=== PATIENT | male | born 1950 | race Caucasian/White ===

== ENCOUNTER → 2016-08-01 | Outpatient (CLI) | payer OTHER ==
[2015-09-16 11:41] VITALS: BP 162/80
[~2016-08-01] MED LIST: ASPI325T11 PO; DILT240C2 PO; INSU100I27 SQ; MECL25TA PO; OMEP20CA9 PO; POTA20TA82 PO; TAMS0.4C97 PO
[2016-08-01 10:18] LABS: HEMATOCRIT 42.8 % (39.0-53.0); HEMOGLOBIN 14.8 g/dL (13.0-17.5)
[2016-08-01 10:22] LABS: BILIRUBIN,URINE NEG (NEG); CLARITY,URINE HAZY; COLOR,URINE YELLOW; GLUCOSE,URINE 100 mg/dL (NEG)
[2016-08-01 10:23] LABS: AMORPHOUS SEDIMENT,UR PRESENT /HPF; BACTERIA,URINE 0 /HPF (0-FEW); NITRITE,URINE NEG (NEG); SQUAMOUS EPITHELIAL CELL,UR OCC /LPF; UROBILINOGEN,URINE 0.2 mg/dL (0.2 mg/dL); WBC,URINE 0 /HPF (0-4)
[2016-08-01 10:43] LABS: ALBUMIN 3.1 g/dL (3.4-5.0); CALCIUM 8.7 mg/dL (8.5-10.1); CREATININE 1.5 mg/dL (0.7-1.3); GFR 46.7; MAGNESIUM 1.2 mg/dL (1.8-2.4); PHOSPHORUS 3.2 mg/dL (2.6-4.7); POTASSIUM 4.1 mmol/L (3.5-5.1)
[2016-08-01 22:07] LABS: TOTAL SERUM CREATININE 1.34 mg/dL (0.76-1.27); UR PROTEIN 219.9 mg/dL (Not Estab.)
[2016-08-03 02:11] LABS: CREATININE PTH 1.35 mg/dL (0.76-1.27); PTH INTACT 36 pg/mL (15-65)
== END | disposition home or self-care (01) ==
LOC: LAB 08:41
PROVIDERS: ATTEND Internal Medicine Nephrology
DX: I12.9 Hypertensive chronic kidney disease with stage 1 through stage 4 chronic kidney disease, or unspecified chronic kidney disease (principal); E11.22 Type 2 diabetes mellitus with diabetic chronic kidney disease; E11.65 Type 2 diabetes mellitus with hyperglycemia; N18.3 Chronic kidney disease, stage 3 (moderate); I70.1 Atherosclerosis of renal artery; E55.9 Vitamin D deficiency, unspecified; Z68.29 Body mass index [BMI] 29.0-29.9, adult
CPT/HCPCS: 36415; 80069; 81001; 82575; 83735; 83970; 84156; 85014; 85018

== ENCOUNTER 2019-06-07 19:25 | Observation (INO) | payer MEDICARE, OTHER ==
[~2019-06-07] VITALS: Ht 182.9 cm; Wt 99.5 kg
[~2019-06-07 19:25] MED LIST changes: +OMEP20CA16 PO; -OMEP20CA9 PO; +POTA20TA4 PO; -POTA20TA82 PO
[2019-06-07] MEDS ORDERED: IV RINGERS SOLUTION,LACTATED 1,000 ML IV SCH (19:27)
--- NOTE | 2019-06-07 19:27 | PHYS DOC ---
Past History Past Medical History: Anxiety, CAD, Diabetes, Hypertension, Renal Failure, Other Past Medical History Sepsis- Amputation Lt BKA- Cellulitis 2013?, PVDz Past Surgical History: Other Alcohol Use: None Drug Use: None General Adult HPI: HPI: ".. I ve been hurting in my Rt. flank... since yesterday.. it allen in my kidney area.. maybe.... it not my appendix because it is gone... it hurting more tonight.. 08/25... " I had dialysis back when I got septic...and renal failure.. and was intubated... I think I was at [facility]... ".." I was down there weeks.. It started with an infection in my Lt. foot... but it just kept getting worse..." Patient is a a68 year old MALE who presents with above hx and complaints of Rt. flank pain. Patient denies any intake of bad food. Patient denies any recent travel outside the [place] area. Patient denies any immunosuppression. Patient does have a history of known diabetes. Home glucoses was 136 today. Patient had a serious septic episode from infected left leg which eventually resulted in amputation and prolonged stay in the ICU at [facility]. Patient thinks this occurred approximately 6 years ago.. Patient reports a normal stool yesterday., But then developed a episode of diarrhea yesterday afternoon. Patient denies any history of kidney stones. There is a family history of cancer of the kidneys with his mother, stomach cancer and pancreatic cancer with his 2 brothers that are . The follows with Dr Charisma De Los Santos. Review of Systems: Review of Systems: Constitutional: Denies fever or chills Eyes: Denies change in visual acuity HENT: Denies nasal congestion or sore throat Respiratory: Denies cough or shortness of breath Cardiovascular: Denies chest pain or edema GI: Denies abdominal pain, nausea, vomiting, bloody stools or diarrhea : Denies dysuria Musculoskeletal: Denies back pain or joint pain Integument: Denies rash Neurologic: Denies headache, focal weakness or sensory changes Endocrine: Denies polyuria or polydipsia Lymphatic: Denies swollen glands Psychiatric: Denies depression or anxiety Heart Score: HEART Score for Chest Pain: HEART Score for Chest Pain Response (Comments) Value History Moderately Suspicious 1 ECG Nonspecific Repolarizatio 1 Age > 65 2 Risk Factors 1 or 2 Risk Factors 1 Troponin >1-<3x Normal Limit 1 Total 6 Risk Factors: Risk Factors: DM, Current or recent (<one month) smoker, HTN, HLP, family history of CAD, obesity. Risk Scores: Score 0 - 3: 2.5% MACE over next 6 weeks - Discharge Home Score 4 - 6: 20.3% MACE over next 6 weeks - Admit for Clinical Observation Score 7 - 10: 72.7% MACE over next 6 weeks - Early Invasive Strategies Family History: Family History: Several family members with cancer as per HPI Current Medications: Current Meds: See nursing for home meds Allergies: Allergies: Allergies Coded Allergies Type Severity Reaction Last Updated Verified No Known Drug Allergies 06/26/15 No Physical Exam: PE: Constitutional: Moderate acute distress, non-toxic appearance. [] HENT: Normocephalic, atraumatic, bilateral external ears normal, oropharynx moist, no oral exudates, nose normal. [] Eyes: PERRLA, EOMI, conjunctiva normal, no discharge. [] Neck: Normal range of motion, no tenderness, supple, no stridor. [] Cardiovascular : Bradycardia heart rate regular rhythm, no murmur [] Lungs & Thorax: Bilateral breath sounds equal at apex auscultation [. Patient] has scar upper chest area Abdomen: Bowel sounds normal, soft, right lower flank tenderness, no masses, no pulsatile masses. Distended. Old surgical scar Skin: Warm, dry, no erythema, no rash. [] Back: No tenderness, right CVA tenderness. [] Extremities: No tenderness, no cyanosis, no clubbing, ROM intact, no edema. [] Below the knee amputation left Neurologic: Alert and oriented X 3, normal motor function, decreased plantar sensory function, no focal deficits noted. [] Psychologic: Affect anxious, judgement normal, mood normal. [] EKG: EKG: My interpretation of EKG shows a sinus bradycardia at 51 bpm there is a prolonged IL interval consistent with first-degree block 272 ms, there is left axis deviation, there is left anterior fascicular block, but no findings of acute STEMI with contralateral changes. [] Radiology/Procedures: Radiology/Procedures: [address] [address] IMAGING REPORT Signed PATIENT: SARA ZELAYA ACCOUNT: [id number] : 1950 LOCATION: ER AGE: 68 SEX: M EXAM STATUS: REG ER ORD. PHYSICIAN: SASHA BARNES MD REASON: flank pain, LEFT SIDED PAIN. PROCEDURE: ACUTE ABDOMEN SERIES ACUTE ABDOMEN SERIES 06/07/2019 7:27 PM INDICATION: Right-sided flank pain COMPARISON: Abdominal radiograph 06/10/2006 TECHNIQUE: Supine view of the chest, upright view of the abdomen and supine view of abdomen are provided. FINDINGS/ IMPRESSION: 1. Borderline enlarged cardiomediastinal silhouette. No focal airspace consolidation. Mild bronchial wall thickening in the left lower lobe may represent bronchitis. No pleural effusions, pulmonary vascular congestion or pneumothorax. 2. There is no definite free intraperitoneal air, although sitting views obscure the right hemidiaphragm. There are no dilated loops of small or large bowel. Mild gaseous distention of the sigmoid colon measuring up to 5.8 cm which may represent ileus. Small bowel loops measure up to 2.7 cm the left midabdomen. Moderate amount of stool is noted throughout the colon. 3. Vascular calcifications are present. No suspicious osseous abnormality is identified. Electronically signed by: Rosalino Heredia MD (06/07/2019 8:34 PM) [facility] DICTATED AND SIGNED BY: ROSALINO HEREDIA MD DATE: 06/07/192033 CC: DARIANA DE LOS SANTOS MD; SASHA BARNES MD ~ ][address] [address] IMAGING REPORT Signed PATIENT: SARA ZELAYA ACCOUNT: [id number] : 1950 LOCATION: ER AGE: 68 SEX: M EXAM STATUS: REG ER ORD. PHYSICIAN: SASHA BARNES MD REASON: Rt. flank pain PROCEDURE: CT ABDOMEN PELVIS WO CONTRAST PQRS Compliance Statement: One or more of the following individualized dose reduction techniques were utilized for this examination: 1. Automated exposure control 2. Adjustment of the mA and/or kV according to patient size 3. Use of iterative reconstruction technique CT abdomen/pelvis without contrast 06/07/2019 8:39 PM INDICATION: Right flank pain COMPARISON: CT abdomen/pelvis 06/10/2006 TECHNIQUE: Multiple axial CT images of the abdomen and pelvis were obtained without intravenous contrast. Coronal and sagittal reformats are provided. FINDINGS: There is dependent atelectasis at the right lung base. Heart size is borderline enlarged. Three-vessel coronary artery vascular calcifications are present. Evaluation of solid abdominal viscera is limited by lack of intravenous contrast. Liver, spleen, bilateral adrenal glands and gallbladder are normal in appearance. There is moderate fatty atrophy of the pancreas. No suspicious pancreatic mass. Abdominal aorta is normal in course and caliber with dense calcified atheromatous plaque. No pathologically enlarged lymph nodes are identified in the abdomen and pelvis. There is no free fluid or free intraperitoneal air. Small fat-containing umbilical hernia measures 10 mm. Small and large bowel are normal in caliber. Appendix is not visualized. No pericecal inflammatory changes are identified. Stomach is underdistended, limiting evaluation. The kidneys are relatively symmetric in appearance. There is no suspicious renal mass within the limitations of a noncontrast examination. There is no hydronephrosis. There are no calculi within the kidneys, ureters or urinary bladder. Mild bladder wall thickening may be secondary to underdistention versus chronic outlet obstruction. Prostate is normal in appearance. No suspicious osseous abnormality is identified. IMPRESSION: No acute abnormality is identified in abdomen and pelvis. Specifically, no evidence for obstructive uropathy. Electronically signed by: Rosalino Heredia MD (06/07/2019 9:22 PM) [facility] DICTATED AND SIGNED BY: ROSALINO HEREDIA MD DATE: 06/07/192121 CC: DARIANA DE LOS SANTOS MD; SASHA BARNES MD ~ Course & Med Decision Making: Course & Med Decision Making Pertinent Labs and Imaging studies reviewed. (See chart for details) Pt. admitted to Dr. Zabala and Dr. Schreiber service. Will completed CT with contrast in AM after hydration. Repeat trop. Cardiology consult. Impression: 1. Abdomen pain and right flank pain 2. Diabetes 3. Bradycardia 4. Accelerated HTN 5. Elevated Trop. 0.094 6. Constipation 7. Peripheral vascular disease 8. Anemia 12.5 hemoglobin 9. Diabetes glucose 175 10. Elevated creatinine 1.6 (history of prior renal failure- secondary to sepsis) [] Biju Disclaimer: Biju Disclaimer: This electronic medical record was generated, in whole or in part, using a voice recognition dictation system. Departure Departure: Disposition: 01 HOME/RESIDENCE PRIOR TO ADM Condition: STABLE Referrals: DARIANA DE LOS SANTOS MD (PCP) SASHA BARNES MD Jun 07, 2019 19:27
[2019-06-07] MEDS ORDERED: ONDANSETRON PF 4 MG/2 ML VIAL. IVP ONE (19:45)
[2019-06-07] MEDS ORDERED: KETOROLAC 30 MG/ML VIAL. IVP ONE (19:45)
[2019-06-07] MEDS ORDERED: FAMOTIDINE 20 MG/2 ML VIAL IVP ONE (19:45)
[2019-06-07 20:01] LABS: BILIRUBIN,URINE NEG (NEG); CLARITY,URINE CLEAR; COLOR,URINE YELLOW; GLUCOSE,URINE 500 mg/dL (NEG)
[2019-06-07 20:02] LABS: NITRITE,URINE NEG (NEG); UROBILINOGEN,URINE 0.2 mg/dL (0.2 mg/dL)
[2019-06-07 20:08] LABS: BASO # 0.1 x10^3/uL (0.0-0.2); BASO % 1 % (0-3); EOS # 0.1 x10^3/uL (0.0-0.7); EOS % 2 % (0-3); HEMATOCRIT 36.9 % (39.0-53.0); HEMOGLOBIN 12.5 g/dL (13.0-17.5); LYMPH # 1.8 x10^3/uL (1.0-4.8); LYMPH % 21 % (24-48); MEAN CORPUSCULAR HEMOGLOBIN 30 pg (25-35); MEAN CORPUSCULAR HGB CONC 34 g/dL (31-37); MEAN CORPUSCULAR VOLUME 89 fL (79-100); MONO # 0.7 x10^3/uL (0.0-1.1); MONO % 8 % (0-9); NEUT % 69 % (31-73); PLATELET COUNT 242 x10^3/uL (140-400); RED BLOOD COUNT 4.16 x10^6/uL (4.30-5.70); RED CELL DISTRIBUTION WIDTH 14.1 % (11.5-14.5); WHITE BLOOD COUNT 8.7 x10^3/uL (4.0-11.0)
[2019-06-07 20:13] LABS: BACTERIA,URINE FEW /HPF (0-FEW); CALCIUM 8.9 mg/dL (8.5-10.1); CREATININE 1.6 mg/dL (0.7-1.3); GFR 42.9; POTASSIUM 4.6 mmol/L (3.5-5.1); SQUAMOUS EPITHELIAL CELL,UR MOD /LPF; WBC,URINE 0 /HPF (0-4)
[2019-06-07 20:15] LABS: BARBITURATES NEG (NEG); BENZODIAZEPINES NEG (NEG); CANNABINOIDS NEG (NEG); COCAINE NEG (NEG); METHADONE NEG (NEG); OPIATES NEG (NEG); PHENCYCLIDINE NEG (NEG)
[2019-06-07 20:18] LABS: AMPHETAMINE/METHAMPHETAMINE NEG (NEG)
[2019-06-07 20:19] LABS: DIRECT BILIRUBIN 0.1 mg/dL (0.0-0.2); TOTAL BILIRUBIN 0.4 mg/dL (0.2-1.0); TOTAL PROTEIN 6.3 g/dL (6.4-8.2)
--- NOTE | 2019-06-07 20:37 | RAD ---
ACUTE ABDOMEN SERIES 06/07/2019 7:27 PM INDICATION: Right-sided flank pain COMPARISON: Abdominal radiograph 06/10/2006 TECHNIQUE: Supine view of the chest, upright view of the abdomen and supine view of abdomen are provided. FINDINGS/ IMPRESSION: 1. Borderline enlarged cardiomediastinal silhouette. No focal airspace consolidation. Mild bronchial wall thickening in the left lower lobe may represent bronchitis. No pleural effusions, pulmonary vascular congestion or pneumothorax. 2. There is no definite free intraperitoneal air, although sitting views obscure the right hemidiaphragm. There are no dilated loops of small or large bowel. Mild gaseous distention of the sigmoid colon measuring up to 5.8 cm which may represent ileus. Small bowel loops measure up to 2.7 cm the left midabdomen. Moderate amount of stool is noted throughout the colon. 3. Vascular calcifications are present. No suspicious osseous abnormality is identified. Electronically signed by: Lisa Otoole MD (06/07/2019 8:34 PM) [facility]
[2019-06-07] MEDS ORDERED: MAGNESIUM HYDROXIDE 2,400 MG/30 ML ORAL.SUSP. PO ONE (20:45)
--- NOTE | 2019-06-07 21:25 | RAD ---
PQRS Compliance Statement: One or more of the following individualized dose reduction techniques were utilized for this examination: 1. Automated exposure control 2. Adjustment of the mA and/or kV according to patient size 3. Use of iterative reconstruction technique CT abdomen/pelvis without contrast 06/07/2019 8:39 PM INDICATION: Right flank pain COMPARISON: CT abdomen/pelvis 06/10/2006 TECHNIQUE: Multiple axial CT images of the abdomen and pelvis were obtained without intravenous contrast. Coronal and sagittal reformats are provided. FINDINGS: There is dependent atelectasis at the right lung base. Heart size is borderline enlarged. Three-vessel coronary artery vascular calcifications are present. Evaluation of solid abdominal viscera is limited by lack of intravenous contrast. Liver, spleen, bilateral adrenal glands and gallbladder are normal in appearance. There is moderate fatty atrophy of the pancreas. No suspicious pancreatic mass. Abdominal aorta is normal in course and caliber with dense calcified atheromatous plaque. No pathologically enlarged lymph nodes are identified in the abdomen and pelvis. There is no free fluid or free intraperitoneal air. Small fat-containing umbilical hernia measures 10 mm. Small and large bowel are normal in caliber. Appendix is not visualized. No pericecal inflammatory changes are identified. Stomach is underdistended, limiting evaluation. The kidneys are relatively symmetric in appearance. There is no suspicious renal mass within the limitations of a noncontrast examination. There is no hydronephrosis. There are no calculi within the kidneys, ureters or urinary bladder. Mild bladder wall thickening may be secondary to underdistention versus chronic outlet obstruction. Prostate is normal in appearance. No suspicious osseous abnormality is identified. IMPRESSION: No acute abnormality is identified in abdomen and pelvis. Specifically, no evidence for obstructive uropathy. Electronically signed by: Lisa Otoole MD (06/07/2019 9:22 PM) [facility]
--- NOTE | 2019-06-07 22:27 | EKG ---
[address] [address] Test Date: 2019-06-07 Test Time: 19:48:12 Pat Name: SARA ZELAYA Department: Room: Gender: M Bioinformatics Assistant: : 1950 Requested By: SASHA BARNES Order Number: [id number] Reading MD: Arden Ayala Measurements Intervals Bailey Rate: 51 P: 9 AL: 272 QRS: -30 QRSD: 96 T: 5 QT: 398 QTc: 369 Interpretive Statements SINUS RHYTHM PROLONGED AL INTERVAL ABNORMAL LEFT AXIS DEVIATION LEFT ANTERIOR FASCICULAR BLOCK ABNORMAL ECG Electronically Signed On 06-08-2019 8:47:17 CDT by Arden Ayala
[2019-06-07] MEDS ORDERED: ONDANSETRON PF 4 MG/2 ML VIAL. IVP PRN (23:15)
[2019-06-07] MEDS ORDERED: MORPHINE SULFATE 10 MG/ML SYRINGE. SQ PRN (23:15)
[2019-06-07] MEDS ORDERED: ACETAMINOPHEN 325 MG TABLET PO PRN (23:15)
[2019-06-07] MEDS ORDERED: cloNIDine TTS-2 1 PATCH PATCH TD ONE (23:15)
[2019-06-08] VITALS (8 sets, daily range): BP systolic 130–183; BP diastolic 60–87
[2019-06-08] MEDS ORDERED: cloNIDine HCL 0.1 MG TABLET ONE (00:27)
[2019-06-08] MEDS ORDERED: IOHEXOL 300 MG/ML 75 ML VIAL. IV ONE (00:30)
[2019-06-08] MEDS ORDERED: cloNIDine HCL 0.1 MG TABLET PO ONE (00:30)
[2019-06-08] MEDS ORDERED: IOHEXOL 240 MG/ML 50ML VIAL. PO ONE (00:30)
[2019-06-08] MEDS ORDERED: CONTRAST GIVEN MC PRN (00:30)
[2019-06-08] MEDS: IV RINGERS SOLUTION,LACTATED 1,000 ML IV SCH ×2 (00:30→06:45)
[2019-06-08 06:28] LABS: BASO # 0.1 x10^3/uL (0.0-0.2); BASO % 1 % (0-3); EOS # 0.1 x10^3/uL (0.0-0.7); EOS % 3 % (0-3); HEMOGLOBIN 11.2 g/dL (13.0-17.5); LYMPH # 1.8 x10^3/uL (1.0-4.8); LYMPH % 30 % (24-48); MEAN CORPUSCULAR HEMOGLOBIN 30 pg (25-35); MEAN CORPUSCULAR HGB CONC 34 g/dL (31-37); MEAN CORPUSCULAR VOLUME 89 fL (79-100); MONO # 0.5 x10^3/uL (0.0-1.1); MONO % 9 % (0-9); NEUT # 3.4 x10^3uL (1.8-7.7); NEUT % 58 % (31-73); PLATELET COUNT 221 x10^3/uL (140-400); RED BLOOD COUNT 3.73 x10^6/uL (4.30-5.70); WHITE BLOOD COUNT 5.9 x10^3/uL (4.0-11.0)
[2019-06-08 06:32] LABS: CALCIUM 8.3 mg/dL (8.5-10.1); CREATININE 1.6 mg/dL (0.7-1.3); GFR 42.9; POTASSIUM 4.8 mmol/L (3.5-5.1)
[2019-06-08] MEDS ORDERED: ASPIRIN CHEWABLE 81 MG TABLET. PO SCH (08:00)
[2019-06-08] MEDS ORDERED: IPRATRPIUM/ALBUTEROL 0.5/2.5MG 3 ML NEBU. NEB PRN (08:00)
[2019-06-08] MEDS ORDERED: IPRATRPIUM/ALBUTEROL 0.5/2.5MG 3 ML NEBU. NEB SCH (08:00)
[2019-06-08] MEDS ORDERED: hydrALAZINE 20 MG/ML VIAL. IV PRN (08:15)
--- NOTE | 2019-06-08 08:25 | PDOC2 ---
CARDIAC CONSULT DATE OF CONSULT Date Of Consult DATE: 06/08/19 TIME: 08:19 REASON FOR CONSULT Reason for Consult bradycardia Hypertension Elevated trop REFERRING PHYSICIAN Referring Physician Dr. Goodwin SOURCE Source: Chart review, Patient HPI History of Present Illness This is a 68 yo male who presented secondary to right flank pain. Was noted to be bradycardiac and trop noted to be mildly elevated, which prompted this consult. Troponin check for unknown reasons. Patient denies any chest pain, dizziness, diaphoresis, syncope, or nausea/vomiting. No previous h/o AFIB but reports h/o "fast heart rate" and is on Cardizem. Has been seem at multiple hospitals previously including [facility], [facility], [facility], and [facility]. Does not follow with cardiology. HR remains in mid 40's. Lowest 40, no pauses. PAST MEDICAL HISTORY Cardiovascular: HTN, hyperipidemia Pulmonary: Other (FREDDY) CENTRAL NERVOUS SYSTEM: Periperal neuropathy GI: GERD Renal/: Acute renal failure, Benign prostatic enlarg. PAST SURGICAL HISTORY Past Surgical History: Cataract Removal, Tonsillectomy, Other (Left BKA amputation ) FAMILY HISTORY Family History: Diabetes SOCIAL HISTORY Smoke: No ALCOHOL: none Drugs: None Lives: with Family CURRENT MEDICATIONS Current Medications Current Medications Lactated Ringer's 1,000 ml @ 1,000 mls/hr Q1H IV Last administered on 06/07/19at 19:39; Start 06/07/19 at 19:27; Stop 06/07/19 at 20:26; Status DC Ondansetron HCl (Zofran) 8 mg 1X ONCE IVP Last administered on 06/07/19at 19:39; Start 06/07/19 at 19:45; Stop 06/07/19 at 19:46; Status DC Famotidine (Pepcid Vial) 20 mg 1X ONCE IVP Last administered on 06/07/19at 19:39; Start 06/07/19 at 19:45; Stop 06/07/19 at 19:46; Status DC Ketorolac Tromethamine (Toradol 30mg Vial) 30 mg 1X ONCE IVP Last administered on 06/07/19at 19:40; Start 06/07/19 at 19:45; Stop 06/07/19 at 19:46; Status DC Magnesium Hydroxide (Milk Of Magnesia) 2,400 mg 1X ONCE PO Last administered on 06/07/19at 21:11; Start 06/07/19 at 20:45; Stop 06/07/19 at 20:46; Status DC Ondansetron HCl (Zofran) 4 mg PRN Q4HRS PRN IVP NAUSEA/VOMITING; Start 06/07/19 at 23:15; Stop 06/08/19 at 23:14 Acetaminophen (Tylenol) 650 mg PRN Q4HRS PRN PO FEVER > 100.3'F; Start 06/07/19 at 23:15; Stop 06/08/19 at 23:14 Albuterol/ Ipratropium (Duoneb) 3 ml RTQID NEB ; Start 06/08/19 at 08:00; Stop 06/08/19 at 07:55; Status DC Aspirin (Aspirin Chewable) 81 mg DAILYWBKFT PO ; Start 06/08/19 at 08:00; Stop 06/08/19 at 07:54; Status DC Morphine Sulfate (Morphine 10mg Syringe) 10 mg PRN QID PRN SQ MARKED PAIN; Start 06/07/19 at 23:15 Clonidine HCl (Catapres Tts-2) 1 patch 1X ONCE TD Last administered on 06/07/19at 23:25; Start 06/07/19 at 23:15; Stop 06/07/19 at 23:31; Status DC Lactated Ringer's 1,000 ml @ 160 mls/hr Q6H15M IV ; Start 06/08/19 at 09:00 Iohexol (Omnipaque 240 Mg/ml) 30 ml 1X ONCE PO ; Start 06/08/19 at 00:30; Stop 06/08/19 at 00:31; Status DC Iohexol (Omnipaque 300 Mg/ml) 75 ml 1X ONCE IV ; Start 06/08/19 at 00:30; Stop 06/08/19 at 00:31; Status DC Info (Do NOT chart on this entry -- for MONITORING) 1 each PRN DAILY PRN MC SEE COMMENTS; Start 06/08/19 at 00:30; Stop 06/10/19 at 00:29 Clonidine HCl (Catapres) 0.2 mg 1X ONCE PO Last administered on 06/08/19at 00:31; Start 06/08/19 at 00:30; Stop 06/08/19 at 00:31; Status DC Lactated Ringer's 1,000 ml @ 100 mls/hr Q10H IV Last administered on 06/08/19at 00:30; Start 06/08/19 at 00:30 Clonidine HCl (Catapres) 0.1 mg STK-MED ONCE .ROUTE ; Start 06/08/19 at 00:27; Stop 06/08/19 at 00:28; Status DC Aspirin (Aspirin Enteric Coated) 325 mg DAILY PO ; Start 06/08/19 at 09:00 Diltiazem HCl (Cardizem 24hr Cd) 240 mg DAILY PO ; Start 06/08/19 at 09:00 Tamsulosin HCl (Flomax) 0.4 mg DAILY PO ; Start 06/08/19 at 09:00 Non-Formulary Medication (Insulin Detemir (Levemir Flextouch)) 28 unit BID SQ ; Start 06/08/19 at 09:00; Stop 06/08/19 at 08:00; Status DC Albuterol/ Ipratropium (Duoneb) 3 ml PRN QID PRN NEB wheezy; Start 06/08/19 at 08:00 Insulin Glargine (Lantus Syringe) 28 unit BID SQ ; Start 06/08/19 at 09:00 Hydralazine HCl (Apresoline) 10 mg PRN Q4HRS PRN IV ELEVATED BP, SEE COMMENTS; Start 06/08/19 at 08:15 Active Scripts Active Reported Levemir Flextouch (Insulin Detemir) 100 Unit/1 Ml Insuln.pen 28 Unit SQ BID Flomax (Tamsulosin Hcl) 0.4 Mg Cap.er.24h 0.4 Mg PO DAILY Omeprazole 20 Mg Capsule. 20 Mg PO DAILY Aspirin Ec (Aspirin) 325 Mg Tablet. 325 Mg PO Cardizem Cd (Diltiazem Hcl) 240 Mg Cap.er.24h 240 Mg PO DAILY ALLERGIES Allergies: Coded Allergies: No Known Drug Allergies (Unverified , 06/26/15) ROS Review of Systems 14 point ROS conducted with pertinent positives noted above in HPI PHYSICAL EXAM General: Alert, Oriented X3, Cooperative, No acute distress HEENT: Atraumatic, Mucous membr. moist/pink Lungs: Clear to auscultation, Normal air movement Heart: Other (SB- rate 45) Abdomen: Soft Extremities: No edema, Other (left BKA ) Skin: No rashes, No breakdown Neuro: Normal speech, Sensation intact Psych/Mental Status: Mental status NL, Mood NL MUSCULOSKELETAL: Osteoarthritic changes both hands VITALS Vital Signs Vital Signs Date Time Temp Pulse Resp B/P (MAP) Pulse Ox O2 Delivery O2 Flow Rate FiO2 06/08/19 05:00 97.9 46 20 171/67 (101) 97 Room Air LABS LABS Laboratory Tests Test 06/07/19 19:30 06/08/19 06:00 White Blood Count 8.7 x10^3/uL (4.0-11.0) 5.9 x10^3/uL (4.0-11.0) Red Blood Count 4.16 x10^6/uL (4.30-5.70) 3.73 x10^6/uL (4.30-5.70) Hemoglobin 12.5 g/dL (13.0-17.5) 11.2 g/dL (13.0-17.5) Hematocrit 36.9 % (39.0-53.0) 33.0 % (39.0-53.0) Mean Corpuscular Volume 89 fL (79-100) 89 fL (79-100) Mean Corpuscular Hemoglobin 30 pg (25-35) 30 pg (25-35) Mean Corpuscular Hemoglobin Concent 34 g/dL (31-37) 34 g/dL (31-37) Red Cell Distribution Width 14.1 % (11.5-14.5) 14.0 % (11.5-14.5) Platelet Count 242 x10^3/uL (140-400) 221 x10^3/uL (140-400) Neutrophils (%) (Auto) 69 % (31-73) 58 % (31-73) Lymphocytes (%) (Auto) 21 % (24-48) 30 % (24-48) Monocytes (%) (Auto) 8 % (0-9) 9 % (0-9) Eosinophils (%) (Auto) 2 % (0-3) 3 % (0-3) Basophils (%) (Auto) 1 % (0-3) 1 % (0-3) Neutrophils # (Auto) 6.0 x10^3uL (1.8-7.7) 3.4 x10^3uL (1.8-7.7) Lymphocytes # (Auto) 1.8 x10^3/uL (1.0-4.8) 1.8 x10^3/uL (1.0-4.8) Monocytes # (Auto) 0.7 x10^3/uL (0.0-1.1) 0.5 x10^3/uL (0.0-1.1) Eosinophils # (Auto) 0.1 x10^3/uL (0.0-0.7) 0.1 x10^3/uL (0.0-0.7) Basophils # (Auto) 0.1 x10^3/uL (0.0-0.2) 0.1 x10^3/uL (0.0-0.2) Prothrombin Time 10.8 SEC (9.4-11.4) Prothromb Time International Ratio 1.0 (0.9-1.1) Activated Partial Thromboplast Time 26 SEC (23-33) Urine Collection Type Unknown Urine Color Yellow Urine Clarity Clear Urine pH 5.5 Urine Specific [place] 1.015 Urine Protein >100 mg/dl (NEG-TRACE) Urine Glucose (UA) 500 mg/dL (NEG) Urine Ketones (Stick) Neg mg/dL (NEG) Urine Blood Small (NEG) Urine Nitrite Neg (NEG) Urine Bilirubin Neg (NEG) Urine Urobilinogen Dipstick 0.2 mg/dL (0.2 mg/dL) Urine Leukocyte Esterase Neg (NEG) Urine RBC 1-2 /HPF (0-2) Urine WBC 0 /HPF (0-4) Urine Squamous Epithelial Cells Mod /LPF Urine Bacteria Few /HPF (0-FEW) Sodium Level 133 mmol/L (136-145) 134 mmol/L (136-145) Potassium Level 4.6 mmol/L (3.5-5.1) 4.8 mmol/L (3.5-5.1) Chloride Level 97 mmol/L (98-107) 100 mmol/L (98-107) Carbon Dioxide Level 27 mmol/L (21-32) 27 mmol/L (21-32) Anion Gap 9 (6-14) 7 (6-14) Blood Urea Nitrogen 27 mg/dL (8-26) 28 mg/dL (8-26) Creatinine 1.6 mg/dL (0.7-1.3) 1.6 mg/dL (0.7-1.3) Estimated GFR (Cockcroft-Gault) 42.9 42.9 Glucose Level 175 mg/dL (70-99) 166 mg/dL (70-99) Calcium Level 8.9 mg/dL (8.5-10.1) 8.3 mg/dL (8.5-10.1) Total Bilirubin 0.4 mg/dL (0.2-1.0) Direct Bilirubin 0.1 mg/dL (0.0-0.2) Aspartate Amino Transf (AST/SGOT) 18 U/L (15-37) Alanine Aminotransferase (ALT/SGPT) 20 U/L (16-63) Alkaline Phosphatase 128 U/L (46-116) Creatine Kinase 64 U/L (39-308) Troponin I Quantitative 0.094 ng/mL (0-0.055) 0.088 ng/mL (0-0.055) Total Protein 6.3 g/dL (6.4-8.2) Albumin 3.0 g/dL (3.4-5.0) Amylase Level 61 U/L (25-115) Lipase 52 U/L (73-393) Urine Opiates Screen Neg (NEG) Urine Methadone Screen Neg (NEG) Urine Barbiturates Neg (NEG) Urine Phencyclidine Screen Neg (NEG) Urine Amphetamine/Methamphetamine Neg (NEG) Urine Benzodiazepines Screen Neg (NEG) Urine Cocaine Screen Neg (NEG) Urine Cannabinoids Screen Neg (NEG) Urine Ethyl Alcohol Neg (NEG) ASSESSMENT/PLAN Assessment/Plan 1. Right flank pain, resolved 2. Accelerated hypertension; remains elevated 3. Mild troponin elevation; highest 0.09. Most probably type II, demand ischemia in setting of MARY, accelerated HTN. CP free 4. Bradycardia, sinus. Lowest 40. No pauses. 5. MARY on CKD 6. Hyperlipidemia 7. Diabetes, II Recommendations Discontinue home Cardizem and clonidine patch. Hydralazine PRN Add lisinopril for BP control If HR recovers and maintains in mid 70's, Cardizem 120mg can be resume as patient reports h/o tachycardia Will arrange outpatient event monitor, echocardiogram and followup Supportive care ARIANE CALLOWAY APRN Jun 08, 2019 08:25
[2019-06-08] MEDS: ASPIRIN ENTERIC COATED 325 MG TABLET.DR. PO SCH (08:33)
[2019-06-08] MEDS: TAMSULOSIN 0.4 MG CAP.ER.24H. PO SCH (08:33)
[2019-06-08] MEDS: INSULIN GLARGINE SYRINGE. SQ SCH ×2 (08:39→20:42)
[2019-06-08] MEDS ORDERED: INSULIN DETEMIR 28 UNIT SQ SCH (09:00)
[2019-06-08] MEDS ORDERED: IV RINGERS SOLUTION,LACTATED 1,000 ML IV SCH (09:00)
[2019-06-08] MEDS ORDERED: LISINOPRIL 20 MG TABLET PO SCH (09:00)
[2019-06-08] MEDS: BISACODYL TAB 5 MG TABLET.DR. PO PRN (13:18)
--- NOTE | 2019-06-08 14:50 | HP ---
ADMIT DATE: 06/07/2019 HISTORY OF PRESENT ILLNESS: The patient is a 68-year-old male patient who came to the Emergency Room complaining of right flank pain that started the day before, described as around his kidney area. He rated his pain about 7/10. The pain mostly in the right flank area. Denied any dysuria, frequency or hematuria. Denied any chills, rigors, or fever. Denied any nausea or vomiting. He apparently has a very strong family history of cancer in his mother stomach cancer and pancreatic cancer in his brother that are both , and came for further evaluation and treatment. He denied any chest pain, shortness of breath, cough, phlegm or hemoptysis. He was extensively evaluated in the Emergency Room and his CBC showed that his white cell count, hemoglobin, hematocrit and platelets are all within normal range. He has mild hyponatremia, chronic kidney disease. His prothrombin time, INR and aPTT were normal. Urinalysis was essentially unremarkable and was negative for nitrite and leukocyte esterase. There are no wbc's, and very few bacteria. His toxic screen was essentially negative. He did have acute abdomen series and also CT scan of the abdomen and pelvis without contrast, which basically showed no acute abnormality identified in the abdomen and pelvis, specifically no evidence of any obstructive uropathy. Incidentally, his troponin was elevated at 0.94, so he was admitted to do 2 more sets of cardiac enzymes and it seems that he was also tested for coronavirus by PCR and therefore, he was admitted for further evaluation. He was noted to be also bradycardic and stated that he was also hypertensive at home and therefore, I did consult the cardiology team. PAST MEDICAL HISTORY: Significant for hypertension and hyperlipidemia. He has type 1 diabetes mellitus since he was at the age of 14. He has chronic kidney disease, an episode of acute on chronic kidney failure requiring hemodialysis for 2 months when he became septic and has an infected left foot and left leg. He has also peripheral neuropathy, peripheral vascular disease and cognitive impairment as well as benign prostatic hypertrophy by symptoms. PAST SURGICAL HISTORY: Significant for bilateral cataract extraction and intraocular lens implant. He has left below-knee amputation and has appendectomy. ALLERGIES: He has no known drug allergies. MEDICATIONS: He is currently on following medications: He is on Flomax 0.4 mg daily, diltiazem 240 mg daily, aspirin 325 mg once a day, omeprazole 20 mg once a day. He is on Levemir insulin 28 units subcutaneously twice a day. FAMILY HISTORY: He has 2 brothers, 1 older and 1 younger. His older brother of colon cancer. His younger brother of stomach cancer. His sister is still alive and healthy. His father in his 70s and mother in her 70s because of kidney cancer. SOCIAL HISTORY: He is , has son and 2 daughters. His 2 daughters live with him. He never smoked, does not drink alcohol. He used to be a meat bilingual inside sales representative and he also worked as a security shift manager. REVIEW OF SYSTEMS: The patient has bilateral cataract extraction, but denied any glaucoma or macular degeneration. Denied any earache, tinnitus or sensorineural deafness. Denied any nosebleeds, stuffy nose or postnasal drip. Denied any sore throat, sore tongue, toothache, hoarseness of voice or difficulty swallowing. Denied any nausea, vomiting, diarrhea or constipation. Denied any hematemesis, melena, hematochezia. Denied dysuria, frequency or hematuria. Denied any chest pain, shortness of breath, orthopnea, paroxysmal nocturnal dyspnea. Denied any cough, phlegm or hemoptysis. PHYSICAL EXAMINATION: GENERAL: On arrival to the Emergency Room, he looked well and was clearly in no apparent respiratory distress. There was no pallor, jaundice, cyanosis or thyromegaly. No jugular venous distention. No limb edema. VITAL SIGNS: His heart rate was 53, blood pressure was 158/75, temperature was 98.7, respiratory rate was 18 and oxygen saturation was 98%. HEAD, EYES, EARS, NOSE AND THROAT: Showed normocephalic, atraumatic. NECK: Supple. HEART: Showed normal first and second heart sounds. No gallop or murmur. CHEST: Clear to auscultation. No crepitation or rhonchi. ABDOMEN: Distended, soft, nontender. NEUROLOGIC: He was awake, alert, responding appropriately. He is hard of hearing, but all other cranial nerves are intact. EXTREMITIES: He moves extremities without difficulty, has left below knee amputation. He has a prosthesis and he normally is able to walk with his prosthesis; however, he is mostly wheelchair bound. LABORATORY DATA: Her lab work on arrival showed a white cell count of 8700, hemoglobin 12.5, hematocrit 36.9, MCV 89 and platelet count of 242,000 with normal manual differential. Serum sodium was 133, potassium 4.6, chloride 97, bicarbonate 27, anion gap of 9, BUN 27, creatinine 1.6, estimated GFR was 42 mL per minute. His glucose 175, calcium was 8.9. Total bilirubin, AST, ALT were normal. Alkaline phosphatase slightly elevated. CK was 64. Total protein was 6.3, albumin 3. Amylase and lipase were normal. His first set of troponin was 0.094 ng/mL. His EKG showed that he was in sinus rhythm with prolonged WI interval, abnormal left axis deviation, left anterior fascicular block. The patient, therefore, was admitted with right flank pain, bradycardia, accelerated hypertension, elevated troponin. The patient has also peripheral vascular disease and chronic kidney disease. In fact, he was given about 2 liters of fluid in the Emergency Room in the form of lactated Ringer's solution, clonidine was added also and was admitted to do 2 more sets of cardiac enzyme. His acute abdomen series showed that the patient has borderline enlarged cardiomediastinal silhouette, no focal airspace consolidation. Mild bronchial wall thickening in the left lower lobe, may represent bronchitis. No pleural effusion, pulmonary vascular congestion or pneumothorax. There is no definite free intraperitoneal air, although sitting views obscured the right hemidiaphragm. There are no dilated loops of small or large bowel. Mild gaseous distention of the sigmoid colon measuring up to 5.8 cm, which may represent ileus. Small bowel loops measures up to 2.5 cm. The left mid abdomen, moderate amount of stool is noted throughout the colon, has vascular calcification present. No suspicious osseous abnormalities identified. ASSESSMENT AND PLAN: The patient was admitted to do 2 more sets of cardiac enzyme, to consult the autobody technician and to monitor his kidney function. NATALEE HOSKINS MD DR: [email or web address] JOB#: [id number] / [id number]
--- NOTE | 2019-06-08 15:35 | RAD ---
Examination: 2 views of the lumbar spine, 2 views of the right hip and frontal view the pelvis HISTORY: History of right lower lumbar pain COMPARISON: None available FINDINGS: The bilateral femoral heads within the acetabula. Moderate joint space loss identified in the bilateral hip joints. Moderate intervertebral disc height loss identified in the lumbar spine. Mild anterior compression changes of T11, T12 vertebral bodies. The facets are well aligned. IMPRESSION: 1. Moderate degenerative changes lumbar spine. Mild anterior compression changes of the T11, T12 vertebral bodies, age indeterminate. 2. Moderate bilateral degenerative changes hip joints. Electronically signed by: Moises Jay MD (06/08/2019 3:32 PM) [id number]
--- NOTE | 2019-06-08 16:07 | PN ---
DATE: 06/08/2019 SUBJECTIVE: The patient is resting, slightly propped up in bed, in no apparent respiratory distress. He continued to complain of pain in his right flank area. The pain is aggravated only by movement, is not aggravated by coughing, sneezing or straining. He was extensively investigated and basically CT scan of the abdomen did not show any abnormality, particularly it showed no evidence of any obstructive uropathy and his kidneys were symmetrical in appearance. There is no suspicious renal mass within the limitation of the noncontrast examination. There is no hydronephrosis. There are no calculi within the kidneys, ureters or urinary bladder and there is mild bladder wall thickening, may be secondary to under distention versus chronic outlet obstruction. Prostate is normal in appearance. No suspicious osseous abnormalities identified. As he continued to have bradycardia, we stopped his Cardizem altogether and added hydralazine as well as lisinopril. PHYSICAL EXAMINATION: GENERAL: When I examined him this afternoon, he looked well and was clearly in no apparent respiratory distress. He was pale, but not jaundiced, cyanosed, no thyromegaly. No jugular venous distention. No lower limb edema. VITAL SIGNS: His heart rate was 54, blood pressure was 130/71, temperature was 97.4, respiratory rate 20, and oxygen saturation was 95%. HEAD, EYES, EARS, NOSE AND THROAT: Normocephalic, atraumatic. NECK: Supple. HEART: Showed normal first and second heart sounds. No gallop, rub or murmur. CHEST: Clear to auscultation. No crepitation or rhonchi. ABDOMEN: Distended, soft, nontender. NEUROLOGIC: He was hard of hearing, but otherwise all his cranial nerves are intact. He moves extremities without difficulty, has left below-knee amputation. His intake over the last 24 hours was 1000, no output was recorded. LABORATORY DATA: His lab work this morning showed that his serum sodium is up to 134, potassium 4.8, chloride 100, bicarbonate 27, anion gap of 7, BUN 28, creatinine 1.6, estimated GFR was 42 mL per minute. His glucose 166, calcium was 8.3. Second set of cardiac enzymes showed troponin to be 0.088 and his TSH was normal at 1.319. ASSESSMENT: In summary, this is a 68-year-old male patient who was admitted with right flank pain, although he says a CT scan of the abdomen and pelvis showed no abnormality to explain that. He has normal kidney function; however, looking back, his baseline creatinine since 2017 was 1.6; has bradycardia, which is slightly improved now after we held his Cardizem; mild elevation of cardiac troponin felt to be type 2 demand ischemia in the setting of accelerated hypertension. PLAN: My plan is to start him on half a dose of Cardizem at 120 mg once a day starting tomorrow. I will discontinue lisinopril given his abnormal kidney function. I will arrange for him to have an x-ray of his lumbar spine as well as right hip joint and we will decide the further management accordingly. NATALEE HOSKINS MD DR: [email or web address] JOB#: [id number] / [id number]
[2019-06-08] MEDS ORDERED: hydrALAZINE 10 MG TABLET PO SCH (21:00)
[2019-06-09 05:00] VITALS: BP 182/83
[2019-06-09] MEDS: hydrALAZINE 10 MG TABLET PO SCH ×2 (08:15→09:00)
--- NOTE | 2019-06-09 08:20 | PDOC ---
CARDIO Progress Notes Date & Time Date of Service DATE: 06/09/19 TIME: 08:19 Time of Evaluation 08:19 Subjective Notes c/o right lower back pain with certain movements. No chest pain, palpitations, dizziness, diaphoresis, or SOA. Vitals Vitals Vital Signs Date Time Temp Pulse Resp B/P (MAP) Pulse Ox O2 Delivery O2 Flow Rate FiO2 06/09/19 05:00 97.4 57 20 182/83 (116) 94 Room Air Weight Weight [ ] Input and Output I.O. Intake and Output 06/09/19 07:00 Intake Total 2680 ml Output Total 1100 ml Balance 1580 ml Intake Oral 1680 ml IV Total 1000 ml Output Urine Total 1100 ml # Voids 2 Laboratory Labs Laboratory Tests Test 06/07/19 19:30 06/07/19 23:50 06/08/19 06:00 06/08/19 11:25 White Blood Count 8.7 x10^3/uL (4.0-11.0) 5.9 x10^3/uL (4.0-11.0) Red Blood Count 4.16 x10^6/uL (4.30-5.70) 3.73 x10^6/uL (4.30-5.70) Hemoglobin 12.5 g/dL (13.0-17.5) 11.2 g/dL (13.0-17.5) Hematocrit 36.9 % (39.0-53.0) 33.0 % (39.0-53.0) Mean Corpuscular Volume 89 fL (79-100) 89 fL (79-100) Mean Corpuscular Hemoglobin 30 pg (25-35) 30 pg (25-35) Mean Corpuscular Hemoglobin Concent 34 g/dL (31-37) 34 g/dL (31-37) Red Cell Distribution Width 14.1 % (11.5-14.5) 14.0 % (11.5-14.5) Platelet Count 242 x10^3/uL (140-400) 221 x10^3/uL (140-400) Neutrophils (%) (Auto) 69 % (31-73) 58 % (31-73) Lymphocytes (%) (Auto) 21 % (24-48) 30 % (24-48) Monocytes (%) (Auto) 8 % (0-9) 9 % (0-9) Eosinophils (%) (Auto) 2 % (0-3) 3 % (0-3) Basophils (%) (Auto) 1 % (0-3) 1 % (0-3) Neutrophils # (Auto) 6.0 x10^3uL (1.8-7.7) 3.4 x10^3uL (1.8-7.7) Lymphocytes # (Auto) 1.8 x10^3/uL (1.0-4.8) 1.8 x10^3/uL (1.0-4.8) Monocytes # (Auto) 0.7 x10^3/uL (0.0-1.1) 0.5 x10^3/uL (0.0-1.1) Eosinophils # (Auto) 0.1 x10^3/uL (0.0-0.7) 0.1 x10^3/uL (0.0-0.7) Basophils # (Auto) 0.1 x10^3/uL (0.0-0.2) 0.1 x10^3/uL (0.0-0.2) Prothrombin Time 10.8 SEC (9.4-11.4) Prothromb Time International Ratio 1.0 (0.9-1.1) Activated Partial Thromboplast Time 26 SEC (23-33) Urine Collection Type Unknown Urine Color Yellow Urine Clarity Clear Urine pH 5.5 Urine Specific [place] 1.015 Urine Protein >100 mg/dl (NEG-TRACE) Urine Glucose (UA) 500 mg/dL (NEG) Urine Ketones (Stick) Neg mg/dL (NEG) Urine Blood Small (NEG) Urine Nitrite Neg (NEG) Urine Bilirubin Neg (NEG) Urine Urobilinogen Dipstick 0.2 mg/dL (0.2 mg/dL) Urine Leukocyte Esterase Neg (NEG) Urine RBC 1-2 /HPF (0-2) Urine WBC 0 /HPF (0-4) Urine Squamous Epithelial Cells Mod /LPF Urine Bacteria Few /HPF (0-FEW) Sodium Level 133 mmol/L (136-145) 134 mmol/L (136-145) Potassium Level 4.6 mmol/L (3.5-5.1) 4.8 mmol/L (3.5-5.1) Chloride Level 97 mmol/L (98-107) 100 mmol/L (98-107) Carbon Dioxide Level 27 mmol/L (21-32) 27 mmol/L (21-32) Anion Gap 9 (6-14) 7 (6-14) Blood Urea Nitrogen 27 mg/dL (8-26) 28 mg/dL (8-26) Creatinine 1.6 mg/dL (0.7-1.3) 1.6 mg/dL (0.7-1.3) Estimated GFR (Cockcroft-Gault) 42.9 42.9 Glucose Level 175 mg/dL (70-99) 166 mg/dL (70-99) Calcium Level 8.9 mg/dL (8.5-10.1) 8.3 mg/dL (8.5-10.1) Total Bilirubin 0.4 mg/dL (0.2-1.0) Direct Bilirubin 0.1 mg/dL (0.0-0.2) Aspartate Amino Transf (AST/SGOT) 18 U/L (15-37) Alanine Aminotransferase (ALT/SGPT) 20 U/L (16-63) Alkaline Phosphatase 128 U/L (46-116) Creatine Kinase 64 U/L (39-308) Troponin I Quantitative 0.094 ng/mL (0-0.055) 0.088 ng/mL (0-0.055) Total Protein 6.3 g/dL (6.4-8.2) Albumin 3.0 g/dL (3.4-5.0) Amylase Level 61 U/L (25-115) Lipase 52 U/L (73-393) Urine Opiates Screen Neg (NEG) Urine Methadone Screen Neg (NEG) Urine Barbiturates Neg (NEG) Urine Phencyclidine Screen Neg (NEG) Urine Amphetamine/Methamphetamine Neg (NEG) Urine Benzodiazepines Screen Neg (NEG) Urine Cocaine Screen Neg (NEG) Urine Cannabinoids Screen Neg (NEG) Urine Ethyl Alcohol Neg (NEG) Coronavirus (COVID-19)(PCR) See separate report Thyroid Stimulating Hormone (TSH) 1.319 uIU/mL (0.358-3.740) Glucose (Fingerstick) 205 mg/dL (70-99) Test 06/08/19 17:09 06/08/19 20:01 06/09/19 07:34 06/09/19 07:55 Glucose (Fingerstick) 160 mg/dL (70-99) 179 mg/dL (70-99) 54 mg/dL (70-99) 98 mg/dL (70-99) Physical Exams HEENT: Neck Supple W Full Motion Chest: Symmetric Lungs: Clear to Auscultation Heart: S1S2, RRR Abdomen: Soft N/T Extremities: No Edema, Other (LLE amputation) Neurology: alert, oriented, follow commands Assessment Assessment 1. Right flank pain, resolved. Concerns for possible compression fracture. Bone scan today 2. Accelerated hypertension; remains elevated 3. Mild troponin elevation; highest 0.09. Most probably type II, demand ischemia in setting of MARY, accelerated HTN. CP free 4. Bradycardia, sinus. Lowest 40, no pause. Resolved with holding Cardizem and clonidine patch. 5. CKD 6. Hyperlipidemia 7. Diabetes, II Recommendations ASA Add statin Resume Cardizem 120mg CD Hydralazine for BP control Outpatient event monitor has been arranged Outpatient echo scheduled at [facility] 07/05/19 at 3:00pm. Follow up in our [facility] office with Dr. Ross 07/19/19 at 9:15am. Supportive care May discharge from a CV standpoint ARIANE CALLOWAY APRN Jun 09, 2019 08:20
[2019-06-09] MEDS ORDERED: hydrALAZINE 25 MG TABLET ONE (08:55)
[2019-06-09] MEDS: TAMSULOSIN 0.4 MG CAP.ER.24H. PO SCH (08:57)
[2019-06-09] MEDS: ASPIRIN ENTERIC COATED 325 MG TABLET.DR. PO SCH (08:57)
[2019-06-09] MEDS: INSULIN GLARGINE SYRINGE. SQ SCH (08:58)
[2019-06-09 09:11] LABS: CREATININE 1.8 mg/dL (0.7-1.3); GFR 37.5
[2019-06-09] MEDS: BISACODYL TAB 5 MG TABLET.DR. PO PRN (09:29)
[2019-06-09 09:42] VITALS: BP 159/97
[2019-06-09 12:50] VITALS: BP 198/100
[2019-06-09 12:51] VITALS: BP 169/97
[2019-06-09 12:52] VITALS: BP 147/90
--- NOTE | 2019-06-09 13:24 | RAD ---
Whole body bone scan History: Chronic low back pain. Question lumbar spine compression fracture. Comparison: L-spine x-rays of earlier the same day Procedure: 25 mCI of Tc 99m MDP was injected intravenously and delayed scintigraphic images were obtained of the skeletal system. Findings: Uptake in a pattern consistent with degenerative changes of the joints, most conspicuous in the bilateral knees in the right shoulder is present. There is no abnormal uptake in the along the spine suspicious for a healing fracture. Incidental truncation of the left lower extremity consistent with a below knee amputation is present. There is paucity of uptake in the lower right leg and foot that could be positional. Impression: 1. No scintigraphic evidence of a lumbar spine fracture. Electronically signed by: Lisa Dong MD (06/09/2019 1:21 PM) [id number]
[2019-06-09] MEDS ORDERED: DILT120C99 PO (13:55)
[2019-06-09] MEDS ORDERED: HYDR-2868 PO (13:55)
[2019-06-09] MEDS ORDERED: ATOR20TA PO (13:55)
--- NOTE | 2019-06-09 15:06 | DS ---
DATE OF DISCHARGE: 06/09/2019 HOSPITAL COURSE: The patient is a 68-year-old male patient who actually initially presented with right flank pain. Extensive imaging including CT scan of the abdomen and pelvis as well as x-ray of the lumbar spine and bone scan showed no evidence of any compression fracture. There are no abnormalities in his kidneys. In fact, CT scan of the abdomen showed that his kidneys are relatively symmetric in appearance. There is no suspicious renal mass within the limitations noncontrast examination. There is no hydronephrosis. There are no calculi within the kidneys, ureters or urinary bladder, mild bladder wall thickening, may be secondary to under distention versus chronic outlet obstruction. Prostate is normal in appearance. X-ray of the lumbar spine showed that moderate degenerative changes of lumbar spine, mild anterior compression changes at T11-T12 vertebral bodies and age indeterminate and therefore, we did a bone scan, which showed no scintigraphic evidence of lumbar spine fracture. The patient has bradycardia; therefore, his diltiazem was cut down from 240 to 120; however, his blood pressure is high, so hydralazine was added. He apparently has longstanding type 2 diabetes since he was 14 years old and he probably has autonomic neuropathy as he has recurrent falls and he has marked postural hypotension. He has also chronic kidney disease with creatinine that is stable around 1.6 mg/dL. PHYSICAL EXAMINATION: GENERAL: When I examined him today, he looked well and was clearly in no apparent respiratory distress, slightly pale, but no jaundice, cyanosis or thyromegaly. No jugular venous distention. No limb edema. VITAL SIGNS: His heart rate was 102, blood pressure was 147/90, temperature was 97.5, respiratory rate was 18 and oxygen saturation was 95% on room air. HEAD, EYES, EARS, NOSE AND THROAT: Normocephalic, atraumatic. NECK: Supple. HEART: Showed normal first and second heart sounds. No gallop or murmur. CHEST: Clear to auscultation. No crepitation or rhonchi. ABDOMEN: Distended, soft, nontender. NEUROLOGICALLY: He is awake, alert, responding appropriately. All cranial nerves are intact. He moves extremities without difficulty. He has left below-knee amputation. His intake over the last 24 hours was 2700 and output was 1100. His lab work as of yesterday showed a white cell count was 5900, hemoglobin 11, hematocrit 33, MCV 89 and platelet count 221,000. Serum sodium this morning was 137, potassium 4, chloride 100, bicarbonate 27, anion gap of 10, BUN 33, creatinine 1.8. His glucose was 95, calcium was 9. His serum triglycerides 114, total cholesterol was 130, LDL cholesterol was 65, VLDL was 22, HDL was 43 and the ratio was 3. His TSH was normal at 1.319. He has 2 sets of cardiac enzymes showed troponin to be slightly elevated initially at 0.094 and then 0.088, felt to be secondary to type 2 demand ischemia due to accelerated hypertension. DISCHARGE MEDICATIONS: The patient was discharged home to continue atorvastatin calcium 20 mg at bedtime, diltiazem hydrochloride 120 mg once a day, hydralazine 25 mg twice a day, aspirin 325 mg once a day, Levemir insulin 25 mg twice a day, omeprazole 20 mg daily and tamsulosin for Flomax 0.4 mg at bedtime. The patient was advised to follow up with his primary care physician and has an appointment to follow with Cardiology team already scheduled. FINAL DISCHARGE DIAGNOSES: 1. Bradycardia, resolved after we cut down his diltiazem and clonidine patch was discontinued. 2. Accelerated hypertension. 3. Right flank pain with no evidence of any compression fracture. 4. Mild elevation of troponin, felt to be secondary to type 2 demand ischemia, chronic kidney disease, hyperlipidemia, type 2 diabetes. NATALEE HOSKINS MD DR: [email or web address] JOB#: [id number] / [id number]
[2019-06-09] MEDS ORDERED: hydrALAZINE 10 MG TABLET PO SCH (21:00)
[2019-06-09] MEDS ORDERED: ATORVASTATIN CALCIUM 20 MG TABLET PO SCH (21:00)
== END 2019-06-09 16:40 | disposition still patient (30) ==
LOC: ER 19:25 → INTOOBSV 23:08 → 1 SOUTH 23:08
PROVIDERS: ADMIT Internal Medicine; ATTEND Hospitalist
DX: R00.1 Bradycardia, unspecified (principal); E78.5 Hyperlipidemia, unspecified; E87.1 Hypo-osmolality and hyponatremia; I12.9 Hypertensive chronic kidney disease with stage 1 through stage 4 chronic kidney disease, or unspecified chronic kidney disease; I25.10 Atherosclerotic heart disease of native coronary artery without angina pectoris; K59.00 Constipation, unspecified; E10.51 Type 1 diabetes mellitus with diabetic peripheral angiopathy without gangrene; E10.22 Type 1 diabetes mellitus with diabetic chronic kidney disease; D64.9 Anemia, unspecified; I24.8 Other forms of acute ischemic heart disease; N17.9 Acute kidney failure, unspecified; N18.9 Chronic kidney disease, unspecified; N40.0 Benign prostatic hyperplasia without lower urinary tract symptoms; Z79.4 Long term (current) use of insulin; Z79.899 Other long term (current) drug therapy
CPT/HCPCS: 36415; 72100; 73502; 74022; 74176; 78300; 80048; 80061; 80076; 80307; 81001; 82150; 82550; 82947; 83690; 84443; 84484; 85025; 85610; 85730; 87635; 93005; 96374; 96375; 99285; A9503; G0378; J0360; J1815; J1885; J2405; J3490; J7120; G0379

== ENCOUNTER 2019-11-02 07:34 | Emergency (ER) | payer MEDICARE ==
[~2019-11-02] VITALS: Ht 182.9 cm; Wt 103.5 kg
[~2019-11-02 07:34] MED LIST changes: +ATOR20TA PO; +DILT120C99 PO; +HYDR-2868 PO
[2019-11-02 08:04] LABS: BASO # 0.1 x10^3/uL (0.0-0.2); BASO % 1 % (0-3); EOS # 0.1 x10^3/uL (0.0-0.7); EOS % 2 % (0-3); HEMATOCRIT 35.2 % (39.0-53.0); LYMPH # 1.7 x10^3/uL (1.0-4.8); LYMPH % 26 % (24-48); MEAN CORPUSCULAR HEMOGLOBIN 30 pg (25-35); MEAN CORPUSCULAR HGB CONC 34 g/dL (31-37); MEAN CORPUSCULAR VOLUME 89 fL (79-100); MONO # 0.5 x10^3/uL (0.0-1.1); MONO % 8 % (0-9); NEUT % 62 % (31-73); PLATELET COUNT 251 x10^3/uL (140-400); RED BLOOD COUNT 3.97 x10^6/uL (4.30-5.70); RED CELL DISTRIBUTION WIDTH 14.5 % (11.5-14.5); WHITE BLOOD COUNT 6.5 x10^3/uL (4.0-11.0)
--- NOTE | 2019-11-02 08:12 | PHYS DOC ---
Past History Past Medical History: Anxiety, CAD, Diabetes, Hypertension, Renal Failure, Other Past Surgical History: Other Additional Past Surgical Histo: BELOW THE KNEE AMPUTATION LEFT Smoking: Non-smoker Alcohol Use: None Drug Use: None General Adult EDM: Chief Complaint: SHORTNESS OF BREATH HPI: HPI: Josh Lovell is a 69-year-old male who [facility] with shortness of air for the last 3 days. He states that he notices this most during the night when he lays down, and that this morning it was the most severe that it is been over the last 3 days. He states that he woke up wheezing and unable to get a full breath of air. He affirms right lower extremity swelling (history of left below the knee amputation) and a dry cough. He states that he had a similar episode earlier this year for which he was hospitalized for some time. He affirms a history of an echocardiogram but is unsure of when it was performed. He denies a history of CHF, COPD, or asthma. Patient states that now he has been waking up 3-4 times every night to urinate, he is producing a very small amount of urine lately. He denies history of prostate issues. He denies fever, chest pain, palpitations, and all other complaints. The patient was recently seen by his primary care physician where he had routine labs drawn. Was informed that his creatinine level was elevated from May at which time it was 1.8. He affirms history of diabetes mellitus and hypertension. EMS reported patient with initial O2 sat down to 82%. Patient was placed on 6L supplemental O2 via NC and given Duoneb treatment in route with improvement up to 99% upon arrival to ED. Review of Systems: Review of Systems: Constitutional: Denies fever or chills HENT: Denies nasal congestion or sore throat Respiratory: Affirms cough and shortness of breath Cardiovascular: Denies chest pain or palpitations GI: Denies abdominal pain, nausea, or vomiting : Denies dysuria or hematuria; affirms decreased output Musculoskeletal: Denies back pain; reports right LE swelling Integument: Denies rash or skin lesions Neurologic: Denies headache, focal weakness or sensory changes Complete systems were reviewed and found to be within normal limits, except as documented in this note. Heart Score: HEART Score for Chest Pain: HEART Score for Chest Pain Response (Comments) Value History Slighlty/Non-Suspicious 0 ECG Normal 0 Age > 65 2 Risk Factors 1 or 2 Risk Factors 1 Troponin >3 x Normal Limit 2 Total 5 Risk Factors: Risk Factors: DM, Current or recent (<one month) smoker, HTN, HLP, family history of CAD, obesity. Risk Scores: Score 0 - 3: 2.5% MACE over next 6 weeks - Discharge Home Score 4 - 6: 20.3% MACE over next 6 weeks - Admit for Clinical Observation Score 7 - 10: 72.7% MACE over next 6 weeks - Early Invasive Strategies Allergies: Allergies: Allergies Coded Allergies Type Severity Reaction Last Updated Verified No Known Drug Allergies 06/26/15 No Physical Exam: PE: Constitutional: Well developed, well nourished, no acute distress, non-toxic appearance HENT: Normocephalic, atraumatic Lungs & Thorax: No respiratory distress, equal chest rise and fall, crackles in all lung [place], occasional wheezing in upper lung [place] bilaterally Abdomen: Tight, distended, no tenderness to palpation, negative fluid wave Skin: Warm, dry, no erythema, no rash Back: No tenderness, no CVA tenderness Extremities: No tenderness, ROM intact, 1+ right lower extremity edema, left below the knee amputation Neurologic: Alert and oriented X 3, normal motor function, normal sensory function, no focal deficits noted Psychologic: Affect normal, judgment normal Current Patient Data: Vital Signs: Vital Signs Date Time Temp Pulse Resp B/P (MAP) Pulse Ox O2 Delivery O2 Flow Rate FiO2 11/02/19 07:40 98.3 76 30 190/93 (125) 98 Nasal Cannula 6.0 EKG: EKG: @0738 NSR at 75 bpm First degree heart block (WI 302 ms) Left axis deviation No ST elevation or depression No T wave inversions, prominent T waves in V3-4 QRS 86 ms QT 382 QTc 429 Radiology/Procedures: Radiology/Procedures: PROCEDURE: PORTABLE CHEST 1V EXAM: PORTABLE CHEST 1V 11/02/2019 7:36 AM CLINICAL INDICATION:Shortness of breath COMPARISON:Chest radiograph 11/02/2019 TECHNIQUE:AP upright view of the chest FINDINGS:The heart is at the upper limit of normal in size. Lungs are slightly hypoexpanded with mild bibasilar opacities. No pleural effusion or pneumothorax. No acute osseous abnormality. IMPRESSION:Mild bibasilar opacities, likely atelectasis. Pneumonia not entirely excluded. Electronically signed by: Corina Montelongo MD (11/02/2019 8:19 AM) [id number] Course & Med Decision Making: Course & Med Decision Making Pertinent Labs and Imaging studies reviewed. (See chart for details) Patient presents with shortness of air x 3 days. EMS found patient down to 82% on RA with subsequent improvement with supplemental O2 and duoneb . Physical exam with suspicion is high for fluid overload secondary to congestive heart failure due to his clinical presentation as well as physical exam findings of lower extremity edema and coarse breath sounds. Troponin was found to be elevated to 0.4 likely secondary to heart strain. Imaging revealed bibasilar atelectasis, with emergency department suspicion for fluid congestion. Given the patient's history of renal failure, Bumex will be used to begin diuresis. Hypertension also treated. Hypomagnesemia addressed. Cannot fully exclude COVID although patient denies report of known exposure and is afebrile. COVID precautions in place and COVID testing pending. Patient requiring transfer for admission to [facility] for further evaluation and treatment due to acuity of condition and possible need for cardiac rn lab. Discussed with Dr. Gamboa (hospitalist at [facility]) who is in agreement with admission. Discussed findings and plan with patient, who acknowledges understanding and agreement. COVID-19 CRITERIA: The patient was evaluated during the global COVID-19 p andemic, and that diagnosis was suspected/considered upon their initial presentation. Their evaluation, treatment and testing was consistent with current guidelines for patients who present with complaints or symptoms that may be related to COVID-19. Biju Disclaimer: Biju Disclaimer: This electronic medical record was generated, in whole or in part, using a voice recognition dictation system. Departure Departure: Impression: Primary Impression: Acute CHF Qualified Codes: I50.9 - Heart failure, unspecified Additional Impressions: Hypoxia Elevated troponin Hypomagnesemia Hypertension Qualified Codes: I10 - Essential (primary) hypertension Disposition: 05 TRANSFER OTHER ([facility]- Dr. Gamboa) Condition: STABLE Referrals: DARIANA SAEED MD (PCP) Justification of Admission: Justification of Admission: Justification of Admission Dx: Yes Comments: CHF, hypoxia, hypertension, elevated troponin COVID-19 Assessment COVID-19 Patient Risks: Age 65 or older: Yes Sign of co-morbidity: Yes Exp to person + for COVID: No Exp to PUI: No Travel from affected area: No Lower respiratory symptoms: Yes Fever: No PPE Use: Full PPE with N95 mask or PAPR: Yes Critical Care Time Critical care time was 30 minutes which includes time at bedside, spent in discussion of patient's care with specialists and/or family members, with interpretation of laboratory and/or radiological studies and is exclusive of procedures. AURELIA BRAVO DO Nov 02, 2019 08:12
[2019-11-02 08:14] LABS: CALCIUM 7.9 mg/dL (8.5-10.1); CREATININE 1.8 mg/dL (0.7-1.3); GFR 37.4; POTASSIUM 3.5 mmol/L (3.5-5.1)
[2019-11-02] MEDS: NITROGLYCERIN OINT 1 GM PACKET. TP ONE (08:14)
[2019-11-02] MEDS: LABETALOL 20 MG/4 ML DISP.SYRIN. IVP ONE (08:15)
--- NOTE | 2019-11-02 08:22 | RAD ---
EXAM: PORTABLE CHEST 1V 11/02/2019 7:36 AM CLINICAL INDICATION:Shortness of breath COMPARISON:Chest radiograph 11/02/2019 TECHNIQUE:AP upright view of the chest FINDINGS:The heart is at the upper limit of normal in size. Lungs are slightly hypoexpanded with mild bibasilar opacities. No pleural effusion or pneumothorax. No acute osseous abnormality. IMPRESSION:Mild bibasilar opacities, likely atelectasis. Pneumonia not entirely excluded. Electronically signed by: Corina Montelongo MD (11/02/2019 8:19 AM) [id number]
[2019-11-02 08:31] LABS: ALBUMIN 2.3 g/dL (3.4-5.0); TOTAL PROTEIN 6.1 g/dL (6.4-8.2)
[2019-11-02 08:32] LABS: ALBUMIN/GLOBULIN RATIO 0.6 (1.0-1.7); MAGNESIUM 1.4 mg/dL (1.8-2.4); TOTAL BILIRUBIN 0.3 mg/dL (0.2-1.0)
[2019-11-02] MEDS: ASPIRIN 325 MG TABLET PO ONE (08:53)
[2019-11-02] MEDS: BUMETANIDE 1 MG/4 ML VIAL. IVP ONE (08:54)
[2019-11-02] MEDS: MAGNESIUM SULFATE 2GM 50 ML IV ONE (08:59)
[2019-11-02 11:10] VITALS: BP 187/77
--- NOTE | 2019-11-03 07:30 | EKG ---
[address] [address] Test Date: 2019-11-02 Test Time: 07:38:16 Pat Name: SARA ZELAYA Department: Room: Gender: M Financial Underwriter: ALOK : 1950 Requested By: AURELIA BRAVO Order Number: [id number] Reading MD: Measurements Intervals [place] Rate: 75 P: 44 CA: 302 QRS: -8 QRSD: 86 T: 27 QT: 382 QTc: 429 Interpretive Statements SINUS RHYTHM PROLONGED CA INTERVAL LEFTWARD AXIS ABNORMAL ECG RI6.02 No previous ECG available for comparison
== END 2019-11-02 11:21 | disposition short-term general hospital (02) ==
LOC: ER 07:34
DX: I11.0 Hypertensive heart disease with heart failure (principal); I50.9 Heart failure, unspecified; R79.89 Other specified abnormal findings of blood chemistry; R09.02 Hypoxemia; E83.42 Hypomagnesemia; F41.9 Anxiety disorder, unspecified; I25.10 Atherosclerotic heart disease of native coronary artery without angina pectoris; E11.9 Type 2 diabetes mellitus without complications; Z20.828 Contact with and (suspected) exposure to other viral communicable diseases; Z89.512 Acquired absence of left leg below knee
CPT/HCPCS: 36415; 71045; 80053; 82553; 83605; 83735; 83880; 84484; 85025; 85610; 85730; 87040; 93005; 96365; 96366; 96375; 99285; J3475; J3490; U0003

== ENCOUNTER 2019-11-10 18:30 | Emergency (ER) | payer MEDICARE ==
[~2019-11-10] VITALS: Ht 182.9 cm; Wt 103.5 kg
[2019-11-10] MEDS ORDERED: 0.9 % SODIUM CHLORIDE 10 ML DISP.SYRIN. IV ONE (18:45)
[2019-11-10] MEDS ORDERED: FUROSEMIDE 40 MG/4 ML VIAL IVP ONE (18:45)
--- NOTE | 2019-11-10 18:49 | PHYS DOC ---
Past History Past Medical History: Anxiety, CAD, CHF, Diabetes, Hypertension, Renal Failure, Other Past Surgical History: Other Additional Past Surgical Histo: BELOW THE KNEE AMPUTATION LEFT Smoking: Non-smoker Alcohol Use: None Drug Use: None General Adult EDM: Chief Complaint: SHORTNESS OF BREATH HPI: HPI: Patient is a 69 year old male who presents for evaluation of mild to moderate shortness of air. Symptoms been progressing all day today. Patient brought in by EMS for evaluation. Patient has history of heart failure, heart disease and recently had stents placed in the past several weeks. Patient is a moderate distress on arrival. Patient has obvious fluid sounds listening to his lungs. Patient has mild to early moderate conversational dyspnea on arrival with some early retractions noted. Patient given albuterol nebulizer treatment prior to arrival with some minimal improvement of symptoms. Patient was discharged from [facility] in the last 3 to 4 days. Review of Systems: Review of Systems: Constitutional: Denies fever or chills Eyes: Denies change in visual acuity HENT: Denies nasal congestion or sore throat Respiratory: has cough and shortness of breath Cardiovascular: Denies chest pain has edema GI: Denies abdominal pain, has nausea, no vomiting, no bloody stools or diarrhea : Denies dysuria Musculoskeletal: Denies back pain or joint pain Integument: Denies rash Neurologic: Denies headache, focal weakness or sensory changes Endocrine: Denies polyuria or polydipsia Lymphatic: Denies swollen glands Psychiatric: Denies depression or anxiety Heart Score: HEART Score for Chest Pain: HEART Score for Chest Pain Response (Comments) Value History Moderately Suspicious 1 ECG Nonspecific Repolarizatio 1 Age > 65 2 Risk Factors >3 Risk Factors or Hx CAD 2 Troponin >3 x Normal Limit 2 Total 8 Risk Factors: Risk Factors: DM, Current or recent (<one month) smoker, HTN, HLP, family history of CAD, obesity. Risk Scores: Score 0 - 3: 2.5% MACE over next 6 weeks - Discharge Home Score 4 - 6: 20.3% MACE over next 6 weeks - Admit for Clinical Observation Score 7 - 10: 72.7% MACE over next 6 weeks - Early Invasive Strategies Current Medications: Current Meds: Current Medications Medications (Trade) Dose Ordered Sig/Alan Start Time Stop Time Status Last Admin Dose Admin Furosemide (Lasix) 40 mg 1X ONCE 11/10/19 18:45 11/10/19 18:46 DC Sodium Chloride (Normal Saline Flush) 10 ml 1X ONCE 11/10/19 18:45 11/10/19 18:46 DC Allergies: Allergies: Allergies Coded Allergies Type Severity Reaction Last Updated Verified No Known Drug Allergies 06/26/15 No Physical Exam: PE: Constitutional: Well developed, moderate acute distress. [] HENT: Normocephalic, atraumatic, bilateral external ears normal, oropharynx moist, no oral exudates, nose normal. [] Eyes: PERRL, EOMI, conjunctiva normal, no discharge. [] Neck: Normal range of motion, no tenderness, supple, no stridor. [] Cardiovascular:Heart rate regular rhythm, murmur [] Lungs & Thorax: Bilateral breath sounds diminished, rhonchi and rails all lung win[place], mild conversational dyspnea, some retractions present [] Abdomen: Bowel sounds diminishedl, soft, no tenderness, no pulsatile masses. [] Skin: Warm, dry, no erythema, no rash, edema lower extremities. [] Back: No tenderness, no CVA tenderness. [] Extremities: No tenderness, no cyanosis, some pallor, edema. [] Neurologic: Alert and oriented X 3, normal motor function, normal sensory function, no focal deficits noted. [] Psychologic: Affect flat, judgement normal, mood normal. [] Current Patient Data: Labs: ABG venous, pH 7.37, PCO2 48, PO2 20, bicarb 28, Vital Signs: Laboratory Tests Test 11/10/19 18:45 White Blood Count 8.0 x10^3/uL Red Blood Count 3.62 x10^6/uL Hemoglobin 10.9 g/dL Hematocrit 32.4 % Mean Corpuscular Volume 89 fL Mean Corpuscular Hemoglobin 30 pg Mean Corpuscular Hemoglobin Concent 34 g/dL Red Cell Distribution Width 14.5 % Platelet Count 250 x10^3/uL Neutrophils (%) (Auto) 79 % Lymphocytes (%) (Auto) 13 % Monocytes (%) (Auto) 7 % Eosinophils (%) (Auto) 1 % Basophils (%) (Auto) 1 % Neutrophils # (Auto) 6.3 x10^3uL Lymphocytes # (Auto) 1.0 x10^3/uL Monocytes # (Auto) 0.6 x10^3/uL Eosinophils # (Auto) 0.1 x10^3/uL Basophils # (Auto) 0.0 x10^3/uL Sodium Level 134 mmol/L Potassium Level 4.3 mmol/L Chloride Level 98 mmol/L Carbon Dioxide Level 26 mmol/L Anion Gap 10 Blood Urea Nitrogen 45 mg/dL Creatinine 2.7 mg/dL Estimated GFR (Cockcroft-Gault) 23.4 BUN/Creatinine Ratio 17 Glucose Level 115 mg/dL Calcium Level 8.6 mg/dL Total Bilirubin 0.5 mg/dL Aspartate Amino Transf (AST/SGOT) 62 U/L Alanine Aminotransferase (ALT/SGPT) 46 U/L Alkaline Phosphatase 98 U/L Troponin I Quantitative 16.802 ng/mL OH-Zry-C-Type Natriuretic Peptide 66072 pg/mL Total Protein 6.7 g/dL Albumin 2.5 g/dL Albumin/Globulin Ratio 0.6 Current Medications Medications (Trade) Dose Ordered Sig/Alan Route PRN Reason Start Time Stop Time Status Last Admin Dose Admin Sodium Chloride (Normal Saline Flush) 10 ml 1X ONCE IV 11/10/19 18:45 11/10/19 18:46 DC 11/10/19 19:24 Furosemide (Lasix) 40 mg 1X ONCE IVP 11/10/19 18:45 11/10/19 18:46 DC 11/10/19 19:24 Nitroglycerin/ Dextrose 250 ml @ 0 mls/hr 1X ONCE IV 11/10/19 19:00 11/10/19 19:01 DC 11/10/19 19:26 Aspirin (Aspirin Chewable) 324 mg 1X ONCE PO 11/10/19 19:30 11/10/19 19:31 DC EKG: EKG: EKG is normal sinus rhythm, rate 72, leftward axis, flattened T waves lead III, aVF and V6. Not STEMI [] Radiology/Procedures: Radiology/Procedures: [address] [address] IMAGING REPORT Signed PATIENT: SARA ZELAYA ACCOUNT: [id number] : 1950 LOCATION: ER AGE: 69 SEX: M EXAM STATUS: REG ER ORD. PHYSICIAN: LUIS FLYNN DO REASON: short of air PROCEDURE: PORTABLE CHEST 1V AP chest x-ray HISTORY: Shortness of breath. COMPARISON: Chest x-ray November 02, 2019. FINDINGS: Mild cardiomegaly stable. Mediastinal silhouette normal. Perihilar and lower lobe interstitial and alveolar opacities as well as mild fissural thickening has progressed likely pulmonary edema. Limited visualization of the left lateral diaphragm a small left pleural effusion is not excluded. Superimposed lower lobe pneumonia cannot be excluded this setting. IMPRESSION: Worsening pulmonary edema at the lower lobes and possible small left pleural effusion likely progressive congestive heart failure. See above. Electronically signed by: Jadiel Alvarado MD (11/10/2019 7:19 PM) [facility] DICTATED AND SIGNED BY: JADIEL ALVARADO MD DATE: 11/10/191918 CC: DARIANA SAEED MD; LUIS FLYNN DO ~ [] Course & Med Decision Making: Course & Med Decision Making Pertinent Labs and Imaging studies reviewed. (See chart for details) 1927 hospitalist on-call at [facility] paged to discuss case. Dr. Ruby was his admitting physician about [address] French is financial institution vice president tonight. Full dose aspirin will be given. Patient was given Lasix 40 mg IV push as well as nitroglycerin drip. Blood pressure currently improved to 125/60. Patient still having pressure in his chest. Pulmonary edema noted on his chest x-ray. Patient will need ICU bed 1935 Dr. Tapia is the accepting hospitalist physician. They will coordinate a cardiology consult. Patient is able to control his own airway at this time does not require intubation at this time. Clinically patient has improved since arrival. [] Dragon Disclaimer: Dragkobe Disclaimer: This electronic medical record was generated, in whole or in part, using a voice recognition dictation system. Departure Departure: Impression: Primary Impression: Pulmonary edema Qualified Codes: J81.0 - Acute pulmonary edema Additional Impression: Non-STEMI (non-ST elevated myocardial infarction) Disposition: 05 TRANSFER OTHER ([facility] under care of Dr. Tapia) Condition: STABLE Referrals: DARIANA SAEED MD (PCP) Justification of Admission: Justification of Admission: Justification of Admission Dx: Yes Respiratory Failure: Severe Resp Distress Hypertension: Symp at Rest Comments: Pulmonary edema Critical Care Time Critical care time was 30 minutes exclusive of procedures. This included decision-making time, review of x-rays, talking to the accepting big machine consultant physician. LUIS FLYNN DO Nov 10, 2019 18:49
[2019-11-10] MEDS ORDERED: NITROGLYCERIN PREMIX 250 ML IV ONE (19:00)
[2019-11-10 19:06] LABS: BASO % 1 % (0-3); EOS # 0.1 x10^3/uL (0.0-0.7); EOS % 1 % (0-3); HEMATOCRIT 32.4 % (39.0-53.0); HEMOGLOBIN 10.9 g/dL (13.0-17.5); LYMPH % 13 % (24-48); MEAN CORPUSCULAR HEMOGLOBIN 30 pg (25-35); MEAN CORPUSCULAR HGB CONC 34 g/dL (31-37); MEAN CORPUSCULAR VOLUME 89 fL (79-100); MONO # 0.6 x10^3/uL (0.0-1.1); MONO % 7 % (0-9); NEUT # 6.3 x10^3uL (1.8-7.7); NEUT % 79 % (31-73); PLATELET COUNT 250 x10^3/uL (140-400); RED BLOOD COUNT 3.62 x10^6/uL (4.30-5.70); RED CELL DISTRIBUTION WIDTH 14.5 % (11.5-14.5)
[2019-11-10 19:16] LABS: CALCIUM 8.6 mg/dL (8.5-10.1); CREATININE 2.7 mg/dL (0.7-1.3); GFR 23.4; POTASSIUM 4.3 mmol/L (3.5-5.1)
--- NOTE | 2019-11-10 19:22 | RAD ---
AP chest x-ray HISTORY: Shortness of breath. COMPARISON: Chest x-ray November 02, 2019. FINDINGS: Mild cardiomegaly stable. Mediastinal silhouette normal. Perihilar and lower lobe interstitial and alveolar opacities as well as mild fissural thickening has progressed likely pulmonary edema. Limited visualization of the left lateral diaphragm a small left pleural effusion is not excluded. Superimposed lower lobe pneumonia cannot be excluded this setting. IMPRESSION: Worsening pulmonary edema at the lower lobes and possible small left pleural effusion likely progressive congestive heart failure. See above. Electronically signed by: Andriy Alvarado MD (11/10/2019 7:19 PM) [facility]
[2019-11-10 19:29] LABS: ALBUMIN 2.5 g/dL (3.4-5.0); ALBUMIN/GLOBULIN RATIO 0.6 (1.0-1.7); TOTAL BILIRUBIN 0.5 mg/dL (0.2-1.0); TOTAL PROTEIN 6.7 g/dL (6.4-8.2)
[2019-11-10] MEDS ORDERED: ASPIRIN CHEWABLE 81 MG TABLET. PO ONE (19:30)
[2019-11-10 20:13] LABS: BGAS PH 7.37 (7.35-7.46)
--- NOTE | 2019-11-10 20:31 | EKG ---
[address] [address] Test Date: 2019-11-10 Test Time: 18:41:43 Pat Name: SARA ZELAYA Department: Room: Gender: M Hotel Valet Attendant: KAI : 1950 Requested By: LUIS FLYNN Order Number: [id number] Reading MD: Measurements Intervals [place] Rate: 72 P: 90 HI: 292 QRS: 0 QRSD: 92 T: -8 QT: 370 QTc: 411 Interpretive Statements SINUS RHYTHM PROLONGED HI INTERVAL LEFTWARD AXIS LOW LIMB LEAD VOLTAGE ABNORMAL ECG RI6.02 No previous ECG available for comparison
[2019-11-10 20:32] VITALS: BP 113/65
== END 2019-11-10 21:40 | disposition short-term general hospital (02) ==
LOC: ER 18:30
DX: I21.4 Non-ST elevation (NSTEMI) myocardial infarction (principal); I11.0 Hypertensive heart disease with heart failure; I50.1 Left ventricular failure, unspecified; F41.9 Anxiety disorder, unspecified; I25.10 Atherosclerotic heart disease of native coronary artery without angina pectoris; E11.9 Type 2 diabetes mellitus without complications; Z89.512 Acquired absence of left leg below knee
CPT/HCPCS: 36415; 71045; 80053; 82803; 83880; 84484; 85025; 93005; 96365; 96366; 96375; 99291; J1940; J3490